=== PATIENT | female | born 1935 | race Caucasian/White ===

== ENCOUNTER 2022-11-20 09:24 | Outpatient (CLI) | payer MEDICARE, BC | END 2022-11-20 09:25 | disposition home or self-care (01) | LOC: BICMAMMO 09:24 | PROVIDERS: ATTEND Family Medicine | DX: Z12.31 Encounter for screening mammogram for malignant neoplasm of breast (principal) | CPT/HCPCS: 77063; 77067 ==

== ENCOUNTER 2023-04-11 08:03 | Outpatient (CLI) | payer MEDICARE, BC | END 2023-04-11 08:04 | disposition home or self-care (01) | LOC: BICMRI 08:03 | PROVIDERS: ATTEND Anesthesiology Pain Medicine | DX: M47.26 Other spondylosis with radiculopathy, lumbar region (principal); M16.11 Unilateral primary osteoarthritis, right hip; M87.852 Other osteonecrosis, left femur; M51.16 Intervertebral disc disorders with radiculopathy, lumbar region; M89.38 Hypertrophy of bone, other site | CPT/HCPCS: 72120; 72148 ==